=== PATIENT | female | born 1975 | race Caucasian/White ===

== ENCOUNTER → 2016-12-28 | Outpatient (CLI) | payer OTHER ==
[2016-12-28 16:04] LABS: CREATININE 1.3 mg/dL (0.6-1.0); GFR 44.9
== END | disposition home or self-care (01) ==
LOC: LAB 15:05
PROVIDERS: ATTEND Psychiatry & Neurology Neurology
DX: M54.12 Radiculopathy, cervical region (principal)
CPT/HCPCS: 36415; 82550; 82565; 82607; 84443; 84520

== ENCOUNTER → 2017-01-04 | Outpatient (CLI) | payer OTHER ==
[~2017-01-04] MED LIST: GADOBUTROL 7.5 MMOL/7.5 ML VIAL IV ONE
--- NOTE | 2017-01-04 10:11 | RAD ---
INDICATION: Right arm radiculopathy. TECHNIQUE: Sagittal T1, sagittal T2, sagittal STIR, sagittal postcontrast, axial T1, axial T2, axial T2 gradient, and axial postcontrast sequences are provided. The patient received 7.5 mL of intravenous Gadavist without complication. No comparison MRI is available. FINDINGS: There is no malalignment. There is no marrow edema. There is no worrisome marrow lesion. There is no cord signal abnormality. There is no pathologic enhancement. Cervicomedullary junction is unremarkable. There are minimal disc osteophyte complexes at C4-C5 and C5-C6. These do not result in any significant canal or foraminal compromise. There is no disc herniation in the cervical spine. IMPRESSION: Minimal disc osteophyte complexes at C4-C5 and C5-C6. There is no high-grade canal or foraminal compromise at any level. Electronically signed by: Mack Orozco MD (01/04/2017 10:07 AM) [facility]
== END | disposition home or self-care (01) ==
LOC: MRI 07:38
PROVIDERS: ATTEND Psychiatry & Neurology Neurology
DX: M54.12 Radiculopathy, cervical region (principal)
CPT/HCPCS: 72156; A9585

== ENCOUNTER → 2019-01-23 | Outpatient (CLI) | payer OTHER ==
--- NOTE | 2019-01-24 12:26 | KCIC ---
Examination: MRI right shoulder without contrast HISTORY: History of right shoulder pain COMPARISON: None available TECHNIQUE: Multiplanar, multisequence MR imaging of the right shoulder performed without contrast. FINDINGS: The long head of the biceps tendon within the bicipital groove. The attachment of the long head the biceps tendon to the superior labral anchor grossly appears intact. The attachment of the subscapularis tendon, supraspinatus, infraspinatus tendon grossly appears intact. Minimal increased T2 signal identified in the infraspinatus muscle. Minimal increased T2 signal identified in the superior labrum. The muscle bulk grossly appears unremarkable Mild degenerative changes acromioclavicular joint. Acromion is type II. Mild obscuration of fat in the rotator interval. IMPRESSION: 1. Increased T2 signal identified in the superior labrum could be a small SLAP tear. 2. Minimal increased T2 signal identified in the infraspinatus muscle, nonspecific. 2. Minimal obscuration of fat in the rotator interval. Correlate for adhesive capsulitis. Electronically signed by: Jv Weaver MD (01/24/2019 12:24 PM) [facility]
== END | disposition home or self-care (01) ==
LOC: KCIC MRI 16:06
PROVIDERS: ATTEND Orthopaedic Surgery Sports Medicine
DX: M75.01 Adhesive capsulitis of right shoulder (principal); M19.011 Primary osteoarthritis, right shoulder; M25.511 Pain in right shoulder
CPT/HCPCS: 73221

== ENCOUNTER → 2019-12-11 | Outpatient (CLI) | payer OTHER ==
--- NOTE | 2019-12-11 15:50 | KCIC ---
EXAM: Cervical spine MRI without contrast. HISTORY: Neck pain and right upper extremity radiculopathy. TECHNIQUE: Multiplanar, multisequence magnetic resonance imaging of the cervical spine was performed without contrast. COMPARISON: None. FINDINGS: There is no listhesis. The vertebral bodies are normal in height. There is endplate remodeling and disc space narrowing at C4-C5 and C5-6. There is a small hemangioma within. No suspicious osseous lesion is seen. There is no fracture. The skull base and posterior fossa are unremarkable. No spinal cord lesion is seen. At C2-C3, there is no stenosis. At C3-C4, there is no stenosis. At C4-C5, there is a disc bulge and endplate remodeling. There is mild right facet arthropathy. There is right uncovertebral arthropathy. There is mild right foraminal stenosis. At C5-C6, there is a disc bulge and endplate remodeling. There is no stenosis. At C6-C7, there is no stenosis. IMPRESSION: 1. Mild degenerative change at C4-C5, resulting in mild right foraminal stenosis. There is also degenerative change at C5-C6, without significant stenosis. 2. No acute finding. Electronically signed by: Hali Garcia MD (12/11/2019 3:47 PM) [facility]
== END | disposition home or self-care (01) ==
LOC: KCIC MRI 14:33
PROVIDERS: ATTEND Family Medicine
DX: M47.812 Spondylosis without myelopathy or radiculopathy, cervical region (principal); M48.02 Spinal stenosis, cervical region
CPT/HCPCS: 72141

== ENCOUNTER → 2021-04-18 | Outpatient (CLI) | payer OTHER ==
--- NOTE | 2021-04-19 18:22 | CARD ---
MR#: [id number] Date of Study: 04/18/2021 Ordering Physician: STAFF NON, Referring Physician: STAFF WILLIAM, Tech: Supriya Dalmichaellatosha SILVIA APPROVED REPORT EXAM: Two-dimensional and M-mode echocardiogram with Doppler and color Doppler. Other Information Quality : AverageHR: 60bpm INDICATION Pre-Op RISK FACTORS Hypertension 2D DIMENSIONS Left Atrium(2D)3.7 (1.6-4.0cm)IVSd1.1 (0.7-1.1cm) Aortic Root(2D)2.8 (2.0-3.7cm)LVDd5.2 (3.9-5.9cm) LVOT Diameter2.0 (1.8-2.4cm)PWd1.0 (0.7-1.1cm) LVDs2.6 (2.5-4.0cm)FS (%) 50.7 % SV105.6 mlLVEF(%)81.6 (>50%) Aortic Valve AoV Peak Wiley.156.8cm/sAoV VTI34.0cm AO Peak GR.9.8mmHgLVOT Peak Wiley.116.1cm/s LVOT VTI 30.23cmAO Mean GR.5mmHg JAVAN (VMAX)1.13uf3WJB (VTI)2.83cm2 Mitral Valve MV E Qybssxkp31.6cm/sMV DECEL BZQI843gn MV A Ilvtthtz77.9cm/sMV E Mean Gr.2mmHg MV LJV65moF/A Ratio1.4 MVA (PHT)3.42cm2 TDI E/Lateral E'8.8E/Medial E'13.6 Pulmonary Valve PV Peak Azinjmgy29.8cm/sPV Peak Grad.3mmHg Tricuspid Valve TR P. Dtkfogjq871ab/sRAP TADUPPAF8mwWw TR Peak Gr.21vlMxSEAR95kvNr Pulmonary Vein S1 Rfhgncnw60.1cm/sD2 Lqhluwov05.2cm/s PVa ggeaphsl17vpev LEFT VENTRICLE The left ventricle is normal size. There is borderline to mild concentric left ventricular hypertroph y. The left ventricular systolic function is normal and the ejection fraction is within normal range. The Ejection Fraction is 50-55%. There is normal LV segmental wall motion. The left ventricular garcia tolic function and filling is normal for age. RIGHT VENTRICLE The right ventricle is normal size. There is normal right ventricular wall thickness. The right ventr icular systolic function is normal. ATRIA The left atrium size is normal. The right atrium size is normal. The interatrial septum is intact wit h no evidence for an atrial septal defect or patent foramen ovale as noted on 2-D or Doppler imaging. AORTIC VALVE The aortic valve is normal in structure and function. Doppler and Color Flow revealed trace aortic re gurgitation. There is no significant aortic valvular stenosis. Calculated aortic valve area is 3.03 c m2 with maximum pressure gradient of 12 mmHg and mean pressure gradient of 6 mmHg. MITRAL VALVE The mitral valve is normal in structure and function. There is no evidence of mitral valve prolapse. There is no mitral valve stenosis. Doppler and Color-flow revealed trace mitral regurgitation. TRICUSPID VALVE The tricuspid valve is normal in structure and function. Doppler and Color Flow revealed trace tricus pid regurgitation with an estimated PAP of 29 mmHg. There is no tricuspid valve stenosis. PULMONIC VALVE Doppler and Color Flow revealed no pulmonic valvular regurgitation. There is no pulmonic valvular clotilde nosis. GREAT VESSELS The aortic root is normal in size. The ascending aorta is normal in size. The IVC is normal in size a nd collapses >50% with inspiration. PERICARDIAL EFFUSION There is no evidence of significant pericardial effusion. Critical Notification Critical Value: No <Conclusion> The left ventricular systolic function is normal and the ejection fraction is within normal range. Th e Ejection Fraction is 50-55%. There is normal LV segmental wall motion. Signed by : Angelito Alfred, Electronically Approved : 04/19/2021 18:22:03
== END ==
LOC: ECHO 09:50
DX: Z01.818 Encounter for other preprocedural examination (principal); N18.5 Chronic kidney disease, stage 5
CPT/HCPCS: 93306